=== PATIENT | female | born 1990 | race Caucasian/White ===

== ENCOUNTER 2019-01-05 15:29 | Emergency (ER) | payer BC ==
--- NOTE | 2019-01-05 16:04 | EDM.PDOC ---
ED HPI GENERAL MEDICAL PROBLEM - General Chief Complaint: Respiratory Problem Stated Complaint: HEAD CONGESTION Time Seen by Provider: 01/05/19 15:42 Source of Information: Reports: Patient, RN Notes Reviewed History Limitations: Reports: No Limitations - History of Present Illness INITIAL COMMENTS - FREE TEXT/NARRATIVE: Patient is a 28-year-old female who presents to the ED for evaluation of headache/sinus congestion. She states that her symptoms started with a sore throat on Tuesday, and Tuesday it progressed more into sinus type congestion. She states that she stayed home from work Tuesday but Tuesday she felt a little bit better. She notes that she's had some mildly colored mucus, nothing bright green are bright yellow. She states she's had some dull pressure over her sinuses, with a mild headache. She has been taking NyQuil and Mucinex for symptom relief. She denies any fevers/chills, cough, chest pain, shortness of breath, abdominal pain, nausea/vomiting/diarrhea. - Related Data Allergies Allergy/AdvReac Type Severity Reaction Status Date / Time No Known Allergies Allergy Verified 01/05/19 15:38 Home Meds: Home Meds Pnv No.95/Ferrous Fum/Folic AC [ Caplet] 1 tab PO DAILY 01/05/19 [ History] Pyridoxine HCl [Vitamin B-6] 1 tab PO DAILY 01/05/19 [History] T-3 Compound. 1 tab PO DAILY 01/05/19 [History] metFORMIN [Glucophage XR] 1,500 mg PO DAILY 01/05/19 [History] Past Medical History [employer] History: Reports: Polycystic Ovaries - Past Surgical History Musculoskeletal Surgical History: Reports: Other (See Below) Other Musculoskeletal Surgeries/Procedures:: ACL repair Social & Family History - Tobacco Use Smoking Status *Q: Never Smoker Second Hand Smoke Exposure: No - Caffeine Use Caffeine Use: Reports: Coffee - Recreational Drug Use Recreational Drug Use: No ED ROS GENERAL - Review of Systems Review Of Systems: See Below Constitutional: Reports: No Symptoms HEENT: Reports: Rhinitis, Sinus Problem, Throat Pain Respiratory: Reports: No Symptoms Cardiovascular: Reports: No Symptoms Endocrine: Reports: No Symptoms GI/Abdominal: Reports: No Symptoms : Reports: No Symptoms Musculoskeletal: Reports: No Symptoms Skin: Reports: No Symptoms Neurological: Reports: No Symptoms Psychiatric: Reports: No Symptoms Hematologic/Lymphatic: Reports: No Symptoms Immunologic: Reports: No Symptoms ED EXAM, GENERAL - Physical Exam Exam: See Below Exam Limited By: No Limitations General Appearance: Alert, WD/WN, No Apparent Distress Eye Exam: Bilateral Eye: EOMI, Normal Fundi, PERRL Ears: Normal External Exam, Normal TMs (Serous fluid noted behind both TMs.) Nose: Normal Inspection, Nasal Swelling (Bilateral injected nasal turbinates.), Clear Rhinorrhea Throat/Mouth: Normal Inspection, Normal Oropharynx (Oral pharynx is slightly erythematous and swollen. No exudates noted.), No Airway Compromise Head: Atraumatic, Normocephalic Neck: Normal Inspection Respiratory/Chest: No Respiratory Distress, Lungs Clear, Normal Breath Sounds, No Accessory Muscle Use, Chest Non-Tender Cardiovascular: Normal Peripheral Pulses, Regular Rate, Rhythm, No Murmur GI/Abdominal: Normal Bowel Sounds, Soft, Non-Tender, No Distention, No Mass Extremities: Normal Inspection, Normal Capillary Refill Neurological: Alert, Oriented, Normal Cognition, No Motor/Sensory Deficits Psychiatric: Normal Affect, Normal Mood Skin Exam: Warm, Dry, Intact, Normal Color, No Rash Course - Vital Signs Last Recorded V/S: Last Vital Signs Temp 97.7 F 01/05/19 15:55 Pulse 81 01/05/19 15:55 Resp 16 01/05/19 15:55 BP 119/72 01/05/19 15:55 Pulse Ox 97 01/05/19 15:55 - Orders/Labs/Meds Orders: Active Orders 24 hr Category Date Time Status CULTURE STREP A CONFIRMATION [] Stat Lab 01/05/19 16:25 Results STREP SCRN A RAPID W CULT CONF [RM] Stat Lab 01/05/19 16:05 Ordered - Re-Assessments/Exams Free Text/Narrative Re-Assessment/Exam: 01/05/19 16:35 Patient presents to the ED for the evaluation of head congestion. This is likely due to a viral in nature, I did order a strep swab of her throat to evaluate her for strep throat infection or not. This was discussed with the patient and a plan of care was developed she is amenable to this plan. Departure - Departure Time of Disposition: 16:58 Disposition: Home, Self-Care 01 Condition: Fair Clinical Impression: Viral URI Sinusitis Qualifiers: Sinusitis location: maxillary Chronicity: acute Recurrence: non-recurrent Qualified Code(s): J01.00 - Acute maxillary sinusitis, unspecified - Discharge Information *PRESCRIPTION DRUG MONITORING PROGRAM REVIEWED*: No *COPY OF PRESCRIPTION DRUG MONITORING REPORT IN PATIENT SIOBHAN: No Instructions: Sinusitis, Adult, [id number] Referrals: Jayda Minor [facility] [Primary Care Provider] - Forms: ED Department Discharge Additional Instructions: You have been evaluated in the ED today for your cold like symptoms, cough, sore throat. This is likely a viral illness in etiology. Your rapid strep screen was negative for strep at this time, however this will be sent for culture for confirmation. You will be notified if you should need treatment for strep throat. Please increase your fluid intake. Get plenty of rest as well. You should feel better in a few days. Recommend that you take some [id number] nasal decongestants, cough/cold remedies to combat this. Medicines like NyQuil, DayQuil, phenylephrine and other sinus decongestants are adequate. If these are not providing much relief , please go to the pharmacist at any pharmacy and requested that you get a decongestant with pseudoephedrine in it. This is something you will need to show the pharmacist your license for. If your symptoms are not better in one week's time recommend that you follow up in a clinic or your primary care provider. Please return to the ED if your symptoms change or worsen. - My Orders Last 24 Hours: My Active Orders 01/05/19 16:05 STREP SCRN A RAPID W CULT CONF [RM] Stat 01/05/19 16:25 CULTURE STREP A CONFIRMATION [RM] Stat - Assessment/Plan Last 24 Hours: My Active Orders 01/05/19 16:05 STREP SCRN A RAPID W CULT CONF [RM] Stat 01/05/19 16:25 CULTURE STREP A CONFIRMATION [RM] Stat
== END 2019-01-05 17:30 | disposition home or self-care (01) ==
LOC: JD.ED 15:29
DX: J01.00 Acute maxillary sinusitis, unspecified (principal); B97.89 Other viral agents as the cause of diseases classified elsewhere; Z79.899 Other long term (current) drug therapy
CPT/HCPCS: 87081; 87430; 99282; 99283